=== PATIENT | male | born 1980 | race African-American/Black ===

== ENCOUNTER 2019-03-17 18:57 | Emergency (ER) | payer SELFPAY ==
[~2019-03-17] VITALS: Ht 185.4 cm; Wt 81.6 kg
[2019-03-17 21:59] VITALS: BP 146/85
[2019-03-17] MEDS ORDERED: TETANUS-DIPTH-ACEL PERTUSSIS 0.5ML SYRG IM ONE (22:15)
== END 2019-03-17 22:40 | disposition home or self-care (01) ==
LOC: ER 19:02
DX: S01.412A Laceration without foreign body of left cheek and temporomandibular area, initial encounter (principal); W21.03XA Struck by baseball, initial encounter; Y93.89 Activity, other specified; Y92.89 Other specified places as the place of occurrence of the external cause; Y99.8 Other external cause status
CPT/HCPCS: 90471